=== PATIENT | female | born 1955 | race Caucasian/White ===

== ENCOUNTER 2019-09-14 08:21 | Outpatient (CLI) | payer OTHER, SELFPAY ==
--- NOTE | ~2019-09-14 | MM_ITS ---
EXAMINATION: MM screening [facility] HISTORY: Screening TECHNIQUE: Craniocaudal and mediolateral oblique 3-D tomosynthesis images were obtained and synthetic 2-D images were generated. CAD analysis was submitted and interpreted. COMPARISON: No prior mammogram is available for comparison at this institution. BREAST PARENCHYMAL COMPOSITION: There are scattered areas of fibroglandular density. FINDINGS: There are developing calcifications in the outer aspect of the left breast on CC view. The right breast is stable without evidence for malignancy. IMPRESSION: 1. Developing nonspecific calcifications outer aspect of the left breast on CC view. 2. Magnification views are recommended. BI-RADS Category 0: Incomplete: Needs additional imaging evaluation. Reviewed, dictated and finalized at location A.
== END 2019-09-14 08:22 | disposition home or self-care (01) ==
LOC: ANHIMG 08:24
PROVIDERS: PCP Family Medicine; Visit Provider Obstetrics & Gynecology Gynecology
DX: Z12.31 Encounter for screening mammogram for malignant neoplasm of breast (principal); R92.8 Other abnormal and inconclusive findings on diagnostic imaging of breast
CPT/HCPCS: 77063; 77067

== ENCOUNTER 2019-10-04 12:46 | Outpatient (CLI) | payer OTHER, SELFPAY ==
--- NOTE | ~2019-10-04 | MM_ITS ---
EXAMINATION: MM diagnostic mammo unilat LT HISTORY: Left breast calcifications TECHNIQUE: Additional 3-D tomosynthesis images of the left breast were performed and synthetic 2-D im ages were generated. CAD analysis was submitted and interpreted. COMPARISON: 09/14/2019 BREAST PARENCHYMAL COMPOSITION: BREAST PARENCHYMAL COMPOSITION: There are scattered areas of fibroglandular density. FINDINGS: With spot magnification and magnification lateral views of the left breast there are no salty picious clusters of calcifications to suggest malignancy. No new suspicious architectural distortion or discrete mass. IMPRESSION: 1. Benign-appearing left breast calcifications. No evidence for malignancy. 2. Routine yearly screening mammogram and regular clinical breast examination are recommended. BI-RADS Category 2: Benign finding(s). Reviewed, dictated and finalized at location A. IMPRESSION: 1. Benign-appearing left breast calcifications. No evidence for malignancy. 2. Routine yearly screening mammogram and regular clinical breast examination a re recommended. BI-RADS Category 2: Benign finding(s).
== END 2019-10-04 12:47 | disposition home or self-care (01) ==
LOC: ANHIMG 12:47
PROVIDERS: PCP Family Medicine; Visit Provider Obstetrics & Gynecology Gynecology
DX: R92.8 Other abnormal and inconclusive findings on diagnostic imaging of breast (principal)
CPT/HCPCS: 77065

== ENCOUNTER 2020-11-11 14:47 | Outpatient (CLI) | payer OTHER, SELFPAY ==
--- NOTE | ~2020-11-11 | MM_ITS ---
EXAMINATION: MM screening [facility] BI w cici HISTORY: Screening mammogram TECHNIQUE: Craniocaudal and mediolateral oblique 3-D tomosynthesis images were obtained and synthetic 2-D images were generated. CAD analysis was submitted and interpreted. COMPARISON: 10/04/2019, 09/14/2019, 09/01/2018 BREAST PARENCHYMAL COMPOSITION: There are scattered areas of fibroglandular density. FINDINGS: There is no evidence of suspicious mass, calcification, or architectural distortion to sugg est malignancy in either breast. There has been no suspicious interval change. IMPRESSION: 1. No mammographic evidence of malignancy. 2. Recommend routine screening mammography in one year. BI-RADS Category 1: Negative Reviewed, dictated and finalized at location A.
== END 2020-11-11 14:48 | disposition home or self-care (01) ==
LOC: ANHIMG 14:49
PROVIDERS: PCP Family Medicine; Visit Provider Obstetrics & Gynecology Gynecology
DX: Z12.31 Encounter for screening mammogram for malignant neoplasm of breast (principal)
CPT/HCPCS: 77063; 77067

== ENCOUNTER 2020-12-20 10:41 | Outpatient (CLI) | payer OTHER, SELFPAY ==
--- NOTE | ~2020-12-20 | DEXA_ITS ---
Bone Density Report Name: Jennifer Saenz Age: 65 Sex: Female Ethnicity: White Date of : 1955 Indication: postmenopausal; Referring Provider: SERGIO MONROY Study: Bone densitometry was performed. Exam Date: December 20, 2020 Accession number: [id number] Bone Density: Region BMD T-score Z-score Classification AP Spine (L1-L4) 1.097 0.5 2.1 Normal Femoral Neck (Left) 0.948 0.9 2.3 Normal Total Hip (Left) 1.083 1.2 2.3 Normal Total Hip Bilateral Avg 1.065 1.0 2.2 Normal Femoral Neck (Right) 0.899 0.5 1.9 Normal Total Hip (Right) 1.046 0.9 2.0 Normal World Health Organization criteria for BMD impression classify patients as: Normal (T-score at or above -1.0), Osteopenia (T-score between -1.0 and -2.5), or Osteoporosis (T-score at or below -2.5). 10-year Fracture Risk: FRAX not reported because: All T-scores for Spine Total, Hip Total, Femoral Neck at or above -1.0 Previous Exams: Region Exam Age BMD T-score BMD Change BMD Change Date g/cm2 vs Baseline vs Previous AP Spine(L1-L4) 12/20/2020 65 1.097 0.5 -0.106(-8.8%)# -0.038(-3.4%)# 08/13/2016 61 1.136 0.8 -0.068(-5.7%)# -0.015(-1.3%)08/21/2013 58 1.150 0.9 -0.053(-4.4%)# -0.053(-4.4%)08/01/2010 55 1.204 1.4 Total Hip(Left) 12/20/2020 65 1.083 1.2 -0.078(-6.7%)# 0.029(2.7%)08/13/2016 61 1.054 0.9 -0.107(-9.2%)# -0.022(-2.1%)# 08/21/2013 58 1.077 1.1 -0.084(-7.3%)# -0.084(-7.3%)# 08/01/2010 55 1.161 1.8 Total Hip(Right) 12/20/2020 65 1.046 0.9 -0.065(-5.8%)# 0.016(1.5%)# 08/13/2016 61 1.031 0.7 -0.080(-7.2%)# -0.074(-6.7%)08/21/2013 58 1.105 1.3 -0.006(-0.5%)# -0.006(-0.5%)08/01/2010 55 1.111 1.4 *Denotes significance at 95% confidence level, LSC for AP Spine = 0.022 g/cm2, LSC for Total Hip = 0.027 g/cm2 Clinical Information Provided by Patient: Smokes Has used the following medications: Vitamin D, Calcium Patient maximum height was 63.5 Menopause Age: 58 Does not regularly consume dairy products Drinks caffeinated beverages Onset of menses at age 14 Number of children 1 Impression: The patient has normal bone mass. The patient has risk factors, including: smoking. No significant bone loss was observed. Discussion: LOW RISK OF FRACTURE; BONE DENSITY IS WELL ABOVE THE MINIMUM DESIRABLE LEVEL AND ABOVE AVERAGE FOR AGE AND SEX AT ALL SKELETAL SITES TESTED. This person's bone density is
== END 2020-12-20 10:42 | disposition home or self-care (01) ==
LOC: ANHIMG 10:44
PROVIDERS: PCP Family Medicine; Visit Provider Obstetrics & Gynecology Gynecology
DX: Z78.0 Asymptomatic menopausal state (principal)
CPT/HCPCS: 77080

== ENCOUNTER 2021-12-25 08:48 | Outpatient (CLI) | payer OTHER, SELFPAY ==
--- NOTE | ~2021-12-25 | MM_ITS ---
EXAMINATION: MM screening [facility] HISTORY: Screening TECHNIQUE: Craniocaudal and mediolateral oblique 3-D tomosynthesis images were obtained and synthetic 2-D images were generated. CAD analysis was submitted and interpreted. COMPARISON: Comparison to multiple prior studies sequentially, with oldest reviewed study dated 08/13. BREAST PARENCHYMAL COMPOSITION: There are scattered areas of fibroglandular density. FINDINGS: There is no evidence of suspicious mass, calcification, or architectural distortion to sugg est malignancy in either breast. There has been no suspicious interval change. IMPRESSION: 1. No mammographic evidence of malignancy. 2. Recommend routine screening mammography in one year. BI-RADS Category 1: Negative Reviewed, dictated and finalized at location A.
== END 2021-12-25 08:49 | disposition home or self-care (01) ==
LOC: ANHIMG 08:51
PROVIDERS: PCP Family Medicine; Visit Provider Obstetrics & Gynecology Gynecology
DX: Z12.31 Encounter for screening mammogram for malignant neoplasm of breast (principal)
CPT/HCPCS: 77063; 77067

== ENCOUNTER 2022-04-19 01:20 | Day surgery (SDC) | payer MEDICARE, SELFPAY ==
[2022-04-12 10:38] VITALS: BMI 29.2
--- NOTE | 2022-04-12 10:51 | PC.NURSE ---
Report to the Outpatient Waiting Room, entrance under the green pavilion located off [facility], at time _6:00AM on date ___04/19/22____. Planned Procedure Time: _7:30AM . Time changes happen often and if your time is changed the preop area will call you the afternoon before. - You and your visitor will be asked to self-screen and do not enter if you have any COVID symptoms. - Only one visitor is requested with a max of two and NO children visitors are allowed at this time. - The patient visitor may be requested to leave or wait in car when not with patient due to distancing restrictions. - A mask is optional within the hospital at this time. Patients may have clear liquids (water, carbonated beverages, clear teas, apple juice) until 3 hours prior to surgery with a maximum of 20 ounces. - No food from midnight until time of surgery Take the following medications with a SIP of water the morning of surgery: ___NONE DO NOT STOP ANY OF YOUR OTHER PRESCRIPTION MEDICATIONS PRIOR TO SURGERY ?EXCEPT THE FOLLOWING Medications to discontinue per physician ___HOLD VITAMINS/SUPPLEMENTS 3 DAYS PRE-OP Date to take last dose 04/15/22 Please no make-up, nail faroese, hairspray, perfume, deodorant, or body powder the day of surgery. No jewelry (including any body piercings) or valuables the day of surgery, leave them at home. Please take a shower or bath the night before, or the morning of, surgery with an antibacterial soap. Wear comfortable, loose fitting clothing. Children are encouraged to wear pajamas. - Jewelry must be removed prior to entering the operating room. Rings and piercings that are not removed may be cut off. - The hospital will not accept responsibility for valuables. - Please leave all valuables, including medications, at home the day of surgery. If you are going home after surgery, a licensed stake driver must drive you home. - NO public transportation without another adult if you receive anesthesia. - We recommend that an adult stay with you for 24 hours following discharge. - We also recommend that you do not drive, make important decision, drink alcoholic beverages, or take any drugs that were not prescribed by your health care provider for at least 24 hours after your discharge time. Follow any additional instructions given to you from your surgeon. If you or anyone in your household have experienced Covid symptoms in the past week, please notify your surgeon or the nurse liaison at the phone number below for possible testing. Telephone instructions given to __PATIENT and asked if any additional questions and then verbalized understanding. Patient advised to call surgeon office or pre surgery nurse liaison [phone] if any additional questions.
[2022-04-19] VITALS (8 sets, daily range): BP systolic 125–153; BP diastolic 65–90; PULSE 49–87; RESP 10–20; TEMP 36.2–36.7; O2SAT 99–100
[2022-04-19] MEDS: LACTATED RINGERS 1,000 ML 30 ML IV CONT ×2 (06:44→09:14)
[2022-04-19] MEDS: ACETAMINOPHEN 500 MG TABLET 1000 MG PO (06:45)
[2022-04-19] MEDS: KETOROLAC 15 MG/ML VIAL (*BKC) IV PUSH (06:45)
--- NOTE | 2022-04-19 07:17 | WPDANESEPPF ---
Anes - Initial Pre Proc Eval Procedure: Operation Date: 04/19/22 07:30 Proposed Procedures p Laparoscopic Bilateral Salpingo-Oophorectomy - Renata Rose MD Date/Time: 04/19/22 07:17 Surgeon: Renata Rose MD Pre Op Diagnosis: Left Ovarian Cyst Patient Data Age: 67 Gender: F Height: 1.6 m Weight: 74.1 kg Last Vital Signs Temp 36.7 C 04/19/22 06:20 Pulse 87 04/19/22 06:20 Resp 18 04/19/22 06:20 BP 153/90 H 04/19/22 06:20 Pulse Ox 99 04/19/22 06:20 O2 Del Method Room Air 04/19/22 06:20 Allergies Allergy/AdvReac Type Severity Reaction Status Date / Time phenyltoloxamine AdvReac Mild GI UPSET Unverified 04/19/22 06:48 adhesive tape AdvReac Redness of Verified 04/19/22 06:48 Skin Home Medications Medication Instructions Recorded Confirmed Type amlodipine 2.5 mg tablet 2.5 mg PO HS 04/12/22 04/19/22 History brompheniramine-phenylpropanolamine 1 tablet PO DAILY 04/12/22 04/19/22 History 4 mg-25 mg tablet calcium citrate 315 mg 1 tablet PO DAILY 04/12/22 04/19/22 History calcium-vitamin D3 6.25 mcg (250 unit) tablet cetirizine 10 mg tablet (Zyrtec) 10 mg PO DAILY 04/12/22 04/19/22 History cholecalciferol (vitamin D3) 50 100 mcg PO DAILY 04/12/22 04/19/22 History mcg (2,000 unit) capsule famotidine 40 mg tablet 40 mg PO HS 04/12/22 04/19/22 History fluticasone propionate 50 1 spray intranasal BID 04/12/22 04/19/22 History mcg/actuation nasal spray,suspension omeprazole 40 mg capsule,delayed 40 mg PO DAILY 04/12/22 04/19/22 History release quercetin 500 mg capsule 1,000 mg PO DAILY 04/12/22 04/19/22 History coenzyme Q10 200 mg tablet 200 mg PO DAILY 04/19/22 04/19/22 History Patient hx anesthesia problems: none Family hx anesthesia problems: none Results Review: All pre-operative results and documents have been reviewed as part of the pre-operative evaluation. [facility] Family History Family History Mother Hypertension Grandparent Family history of lung cancer Other Family history of Alzheimer's disease Family history of malignant neoplasm of cervix Social History Social History Smoking packs per day: 1 Smoking cigarettes per day: 20.0 Years smoked: 38 Smoking pack-years: 38.00 Smoking status: Current every day smoker Tobacco type: cigarettes Alcohol intake: current Drinks per week: 3 Substance use: never Living arrangements: with family Additional living arrangements comments: SPOUSE & CHILD Spiritual care concerns: No Anes - Eval Final PreProcedure Day of Procedure 04/19/22 07:17 Patient weight: overweight Heart: regular rate and rhythm Lungs: decreased breath sounds Airway: Mallampati scale class II Neurological: alert and oriented Last oral intake: >/= 8 hours ASA classification: III Emergent: no Anesthetic plan: proceed Anesthesia type and monitoring: general ETT and standard monitoring Results Review: All pre-operative results and documents have been reviewed as part of the pre-operative evaluation. Informed Consent: The patient's anesthetic plan and its attendant risks and benefits were discussed with the patient/family/POA. Questions were solicited and answers provided to the satisfaction of the patient/family/POA.
--- NOTE | 2022-04-19 07:28 | WPDHPUPDATE1 ---
History and Physical Update Update Date/Time: 04/19/22 07:28 History and Physical has been reviewed, including an updated exam of the patient. There are NO changes in the patient's condition. Risks, benefits, and alternatives have been discussed and questions answered. Patient agrees to proceed with procedure.
--- NOTE | 2022-04-19 07:28 | PM.HPGS ---
History of Present Illness History of Present Illness Consent: Risks, benefits, and alternatives have been discussed and questions answered. Patient agrees to proceed with procedure. Chief complaint: Left Ovarian Cyst Narrative: Jennifer Saenz is a 67 year old female with a persistent left ovarian complex cyst measuring 7x7x4.6c. The lab test for CA 125, CEA, and CA 19-9 are normal. There is no free fluid. Patient does have some discomfort in the left lower quadrant. Plan is to proceed with laparoscopic removal bilateral tubes and ovaries. Risks of infection, bleeding, injury to internal organs, deep vein thrombosis, and general anesthesia are reviewed. Possible pathology is of such discussed. Patient's mother currently admitted to gynecologic Oncology for likely cancer. Patient voices understanding and agrees to proceed. Review of Systems Review of Systems: not repeated day of surgery; patient states no changes in status PMFSH Past Medical History Medical History (Updated 04/19/22 @ 07:34 by Renata Rose MD) GERD (gastroesophageal reflux disease) History of diverticulitis HTN (hypertension) Surgical History Surgical History (Updated 04/19/22 @ 07:33 by Renata Rose MD) History of bunionectomy History of History of hysteroscopy 2007 benign polyps History of surgery on right wrist Family History Family History Mother Hypertension Grandparent Family history of lung cancer Other Family history of Alzheimer's disease Family history of malignant neoplasm of cervix Social History Social History Smoking packs per day: 1 Smoking cigarettes per day: 20.0 Years smoked: 38 Smoking pack-years: 38.00 Smoking status: Current every day smoker Tobacco type: cigarettes Alcohol intake: current Drinks per week: 3 Substance use: never Living arrangements: with family Additional living arrangements comments: SPOUSE & CHILD Spiritual care concerns: No Meds Home Medications and Allergies Home Medications Medication Instructions Recorded Confirmed Type amlodipine 2.5 mg tablet 2.5 mg PO HS 04/12/22 04/19/22 History brompheniramine-phenylpropanolamine 1 tablet PO DAILY 04/12/22 04/19/22 History 4 mg-25 mg tablet calcium citrate 315 mg 1 tablet PO DAILY 04/12/22 04/19/22 History calcium-vitamin D3 6.25 mcg (250 unit) tablet cetirizine 10 mg tablet (Zyrtec) 10 mg PO DAILY 04/12/22 04/19/22 History cholecalciferol (vitamin D3) 50 100 mcg PO DAILY 04/12/22 04/19/22 History mcg (2,000 unit) capsule famotidine 40 mg tablet 40 mg PO HS 04/12/22 04/19/22 History fluticasone propionate 50 1 spray intranasal BID 04/12/22 04/19/22 History mcg/actuation nasal spray,suspension omeprazole 40 mg capsule,delayed 40 mg PO DAILY 04/12/22 04/19/22 History release quercetin 500 mg capsule 1,000 mg PO DAILY 04/12/22 04/19/22 History coenzyme Q10 200 mg tablet 200 mg PO DAILY 04/19/22 04/19/22 History Allergies Allergy/AdvReac Type Severity Reaction Status Date / Time phenyltoloxamine AdvReac Mild GI UPSET Unverified 04/19/22 06:48 adhesive tape AdvReac Redness of Verified 04/19/22 06:48 Skin Vital Signs Vital Signs - 24 hr 04/19/22 06:20 Temperature 98.0 F Pulse Rate 87 Respiratory Rate 18 Blood Pressure 153/90 H Pulse Oximetry 99 Oxygen Delivery Room Air Exam Const: General: healthy appearing and alert Orientation/consciousness: patient oriented x3 Resp: Effort & Inspection: normal respiratory effort GI: GI Palp: Yes Soft to palpation, No Tenderness to palpation present (GI) and No Palpable mass present : External Female Exam: normal external appearance Speculum Exam - Vagina: normal appearance of the vagina and normal vaginal discharge Speculum Exam - Cervix: normal appearance of the cervix Bimanual
--- NOTE | 2022-04-19 08:36 | P.OP_ITS ---
Procedure Note - Detailed Date of Procedure 04/19/22 Pre-op Diagnosis Left Ovarian Cyst Post-op Diagnosis Same Procedure Performed Laparoscopic bilateral salpingo-oophorectomy Surgeon Renata Rose MD Anesthesia General Findings There are omental adhesions to the left adnexa. The left ovary is enlarged with a simple appearing cyst. The right ovary and bilateral tubes appear normal. There are no peritoneal abnormalities. Description of Procedure The patient is taken to the operating room and placed under anesthesia in the dorsal lithotomy position. She was prepped and draped in the usual sterile fashion. Hardaway speculum was placed in the vagina and the cervix grasped on the anterior lip with a tenaculum. The acorn manipulator was placed and the speculum removed. The bladder was drained with a red rubber catheter of 200cc clear yellow urine. Attention was then turned to the abdomen where a vertical skin incision was made at the base of the umbilicus. The abdomen is tented and the Veress needle placed. Opening patient pressure was 2mmHg. Pneumoperitoneum was obtained to a patient pressure of 15mmHg. The Veress needle is removed and the 5mm Optiview trocar placed. Intra-abdominal placement was confirmed with the laparoscope. The patient is placed in Trendelenburg and a 5mm incision made 2cm above the symphysis pubis in the midline. The 5mm trocar was placed under direct visualization. A 12mm port is placed in the left lower quadrant under direct visualization. The left tube is adherent to the omentum. The LigaSure was used to take down adhesions. The left tube was then grasped and the infundibulopelvic ligament and the mesosalpinx cauterized and cut with the LigaSure. The tube was crossclamped and cauterized and cut with the LigaSure near the cornua. The right tube was grasped and the after her right in fundibulopelvic ligament and medial salpinx are cauterized and cut with the LigaSure until the tube is near the cornua. The tube was then crossclamped and cauterized and cut with LigaSure. The right tube and ovary are able to be removed through the 12 port. The Endo-Catch bag was placed through the 12 port and it is not wide enough to incorporate the cyst. The 12 port is removed and a 15 port placed under direct visualization. The large Endo-Catch bag was then placed through the port and the cyst grasped with the tube and placed into the Endo-Catch bag. The bag was pulled through the port and the port removed the cyst is ruptured inside the bag with no spillage. The specimen was removed from the surgical field. All gloves were then changed. The pelvis was inspected with the laparoscope and no abnormalities are noted. Good hemostasis at all pedicles was noted. Attempts to visualize the right upper quadrant were not successful. All ports are removed. The 15mm port fascia is closed with 0 Vicryl. The skin incisions are closed with 3 O Vicryl in a subcuticular fashion. Vaginal instruments are removed. Sponge, needle, and instrument counts are correct per the OR staff. The patient was awakened from anesthesia and taken to recovery in stable condition. Estimated Blood Loss 0 Drains No Packing No Pathology Yes ( Right tube and ovary, left ovarian cyst fluid for cytology, left ovarian tube and ovary) Complications No immediate complications Condition Stable Disposition PACU
[2022-04-19] MEDS: fentaNYL CITRATE INJ (*CRX) 100 MCG/2 ML VIAL 25 MCG IV PUSH ×3 (09:01→09:11)
[2022-04-19] MEDS: ONDANSETRON INJ 4 MG/2 ML VIAL IV PUSH (09:06)
[2022-04-19] MEDS: oxyCODONE HCL (*CRX) 5 MG TAB IR PO (09:54)
== END 2022-04-19 10:39 | disposition home or self-care (01) ==
PROVIDERS: PCP Family Medicine; Visit Provider Obstetrics & Gynecology Gynecology
PROC: (CPT 49320; principal; 2022-04-19 07:30)
DX: D27.1 Benign neoplasm of left ovary (principal); I10 Essential (primary) hypertension; K21.9 Gastro-esophageal reflux disease without esophagitis; F17.210 Nicotine dependence, cigarettes, uncomplicated
CPT/HCPCS: 58661; 88108; 88305; A9270; J1100; J1885; J2250; J2405; J2704; J2710; J3010; J7030; J7120